=== PATIENT | male | born 1965 | race Caucasian/White ===

== ENCOUNTER 2024-07-13 15:04 | Emergency (ER) | payer MEDICARE, MEDICAID, SELFPAY ==
[2024-07-13 15:17] VITALS: BP 131/113; PULSE 118; RESP 20; TEMP 36.6; O2SAT 98
--- NOTE | 2024-07-13 15:17 | CTR_ITS ---
PROCEDURE INFORMATION: Exam: CT Neck With Contrast Exam date and time: 07/13/2024 4:45 PM Age: 59 years old Clinical indication: Neck pain; Additional info: Left jaw pain/swelling, hiv history TECHNIQUE: Imaging protocol: Computed tomography of the neck with contrast. Radiation optimization: All CT scans at this facility use at least one of these dose optimization techniques: automated exposure control; mA and/or kV adjustment per patient size (includes targeted exams where dose is matched to clinical indication); or iterative reconstruction. Contrast material: OMNI 350; Contrast volume: 100 ml; Contrast route: INTRAVENOUS (IV); COMPARISON: No relevant prior studies available. RADIATION DOSE METRICS: Total DLP (mGy-cm): 234.19 FINDINGS: Salivary glands: There is mild left subcutaneous fat stranding surrounding the left parotid gland with mild enlargement of the inferior aspect of the left parotid gland with heterogeneous enhancement. No collections are seen. Pharynx: Unremarkable. No significant tonsillar enlargement. Larynx: Unremarkable. Epiglottis is normal. Thyroid: Calcified right thyroid nodule measuring 9 mm. Trachea: Visualized trachea is unremarkable. Lungs: Unremarkable as visualized. Lymph nodes: Unremarkable. No lymphadenopathy. Bones/joints: The cervical spine demonstrates mild degenerative changes at multiple levels. Soft tissues: Subcutaneous fat stranding around the inferior aspect of the left parotid gland. CT/CT neck w con* [id number] IMPRESSION: Left parotitis with no abscess formation or collections. COMMENTS: Consistent with the [employer]'s Incidental Findings Committee white paper (J Am Rena Radiol 2015): In patients aged 35 years and older with an incidental thyroid nodule equal to or greater than 1.[address], MRI or extrathyroidal US, further evaluation with dedicated thyroid US is recommended for patients with normal life expectancy and without comorbidities. For smaller nodules without suspicious features, no further evaluation or follow up is recommended.
--- NOTE | 2024-07-13 15:32 | W.ED.DENTAL ---
HPI - Dental/Oral General: Chief complaint: Dental/Oral Stated complaint: left side jaw area knot Time Seen by Provider: 07/13/24 15:08 Source: patient Mode of arrival: ambulatory Limitations: no limitations History of Present Illness: Patient is a 59-year-old male with past medical history of HIV who is presenting to the emergency department complaining of sudden onset left neck swelling beginning a couple of days ago. Reports a history of poor dentition and multiple dental abscesses, however states that this feels different and it has started to make the patient anxious, lightheaded, and nauseous. No vomiting. Tachycardic at time of exam, also reports a history of high blood pressure. States that his T-cell counts have been normal, he has had no residual issues. Has been taking Motrin and Tylenol, no relief. States his airway has been patent, no shortness of breath or chest pain. Pain reported to radiate down left lateral neck, no ear pain. Denies pain medications at this time. Denies history of TMJ. MD Complaint: tooth pain Onset (ago): day(s) Duration: constant Severity: moderate Relieving factors: nothing Exacerbating factors: nothing Context: history of dental caries and poor dental care Associated symptoms: Denies ear or mastoid pain or fever(s) Related Data Previous Rx's ?Medication ?Instructions ?Recorded amoxicillin 875 mg-potassium 1 tab PO BID 7 days #14 tabs 07/13/24 clavulanate 125 mg tablet Allergies Allergy/AdvReac Type Severity Reaction Status Date / Time No Known Allergies Allergy Verified 07/13/24 15:19 Review of Systems General: Reports: 10 or more systems reviewed and unremarkable except in HPI and below Const: Denies: fever(s), chills or fatigue Eyes: Denies: change in vision ENMT: Denies: throat pain, ear or mastoid pain or nasal discharge Card: Reports: lightheadedness; Denies: chest pain, palpitations or swelling of feet/ankles Resp: Denies: dyspnea, productive cough or wheezing GI: Reports: nausea; Denies: abdominal pain, vomiting, diarrhea or constipation : Denies: flank pain, difficulty urinating, dysuria or urinary frequency Musc: Reports: neck pain; Denies: back pain or joint pain Skin/Breast: Denies: rash Neuro: Denies: headache(s), numbness in extremities or weakness in extremities Psych: Reports: anxiety Physical Exam Const: COMMON NORMALS: patient oriented x3 and no limitations GENERAL APPEARANCE: cooperative, well developed and anxious ORIENTATION/CONSCIOUSNESS: Yes awake, Yes oriented to person, Yes oriented to place and Yes oriented to time HENMT: COMMON NORMALS: normocephalic, atraumatic and hearing grossly normal bilaterally HEAD & SCALP: normocephalic and atraumatic OTHER: Poor dentition, multiple caries. No gingival tenderness. Eye: COMMON NORMALS: Equal, round and reactive pupils present, EOMs intact bilaterally and conjunctivae normal CONJUNCTIVA: Yes conjunctivae normal PUPIL: Yes Equal, round and reactive pupils present Neck/C-Spine: COMMON NORMALS: full ROM, supple and no JVD OTHER: Palpable firm swelling to left jaw/neck area. Resp: COMMON NORMALS: normal respiratory effort, No retractions, No use of accessory muscles and clear to auscultation bilaterally AUSCULTATION: clear to auscultation bilaterally Cardio: COMMON NORMALS: no JVD, regular rhythm, No clicks present (Cardio), No murmurs present (Cardio) and No rub (Cardio) RATE: tachycardic RHYTHM: regular rhythm GI: COMMON NORMALS: Normal to inspection, nondistended, normoactive bowel sounds present, Soft to palpation and non-tender AUSCULTATION: Yes normoactive bowel sounds PALPATION: Yes Soft to palpation RECTAL EXAM: Yes deferred Back/Pelvis: COMMON NORMALS: thoracic and lumbar spine normal to inspection, no thoracic nor lumbar tenderness and thoraco-lumbar ROM normal Extremity: COMMON NORMALS: normal to inspection, full ROM and capillary refill normal Neuro: COMMON NORMALS: patient oriented x3, moves all extremities, no focal motor deficits and no sensory deficits noted SENSORIUM/ORIENTATION: Yes oriented to person, Yes oriented to place and Yes oriented to time Psych: COMMON NORMALS: mental status grossly normal and Normal thought process present THOUGHT PROCESS: Normal thought process present Skin: COMMON NORMALS: no rashes or lesions noted GENERAL SKIN EXAM: no rashes or lesions noted Course Vital Signs: Vital signs: Vital Signs Temperature 97.9 F 07/13/24 15:17 Pulse Rate 95 07/13/24 17:23 Respiratory Rate 20 H 07/13/24 15:17 Blood Pressure 124/82 07/13/24 15:45 Pulse Oximetry 96 07/13/24 17:23 Oxygen Delivery Me thod Room Air 07/13/24 17:23 MDM - Dental/Oral Medical Decision Making Patient presenting with sudden onset left neck swelling, history of poor dentition but also history of HIV. Tachycardic on arrival, although patient notably anxious I suspect that this is cause for this. No airway compromise or signs of trouble breathing both with history or exam. Labs obtained unremarkable. CT of the neck showing left proctitis with no abscess. Due to him being immunocompromise HIV, will treat with prophylactic Augmentin but we discussed other conservative measures such as massaging or sour candy/lemon drops to stimulate the duct. He notes quite a bit of improvement after receiving Decadron through IV as well as nausea medications. Discussed return precautions of which she verbalized understanding. Lab Data 07/13/24 15:39 07/13/24 15:[address] 07/13/24 15:17 IMPRESSION: Left parotitis with no abscess formation or collections. COMMENTS: Consistent with the [employer]'s Incidental Findings Committee white paper (J Am Rena Radiol 2015): In patients aged 35 years and older with an incidental thyroid nodule equal to or greater than 1.[address], MRI or extrathyroidal US, further evaluation with dedicated thyroid US is recommended for patients with normal life expectancy and without comorbidities. For smaller nodules without suspicious features, no further evaluation or follow up is recommended. Laboratory Results WBC 11.90 10^3/uL (3.29-11.43) H 07/13/24 15:39 RBC 5.19 10^6/uL (3.85-5.65) 07/13/24 15:39 Hgb 16.30 g/dL (11.27-16.99) 07/13/24 15:39 Hct 46.5 % (37-53) 07/13/24 15:39 MCV 89.6 fl (82-101) 07/13/24 15:39 MCH 31.4 pg (27-33) 07/13/24 15:39 MCHC 35.1 g/dL (30-55) 07/13/24 15:39 RDW 12.4 % (12.1-15.1) 07/13/24 15:39 Plt Count 254 10^3/cmm (157-399) 07/13/24 15:39 MPV 9.0 fL (7.4-10.4) 07/13/24 15:39 Neut % (Auto) 79.4 % 07/13/24 15:39 Lymph % (Auto) 13.0 % 07/13/24 15:39 [place] % (Auto) 6.0 % 07/13/24 15:39 Eos % (Auto) 0.6 % 07/13/24 15:39 Baso % (Auto) 0.7 % 07/13/24 15:39 Neut # (Auto) 9.45 10^3/uL (1.8-7.7) H 07/13/24 15:39 Lymph # (Auto) 1.6 10^3/uL (0.8-4.8) 07/13/24 15:39 [place] # (Auto) 0.7 10^3/uL (0.2-0.9) 07/13/24 15:39 Eos # (Auto) 0.1 10^3/uL (0.0-0.8) 07/13/24 15:39 Baso # (Auto) 0.1 10^3/uL (0.0-0.1) 07/13/24 15:39 Nucleated RBC % (auto) 0 % 07/13/24 15:39 Nucleated RBCs # 0.0 /100WBC 07/13/24 15:39 ESR 17 mm/hr (0-10) H 07/13/24 15:39 Sodium 136 mmol/L (136-145) 07/13/24 15:39 Potassium 3.4 mmol/L (3.5-5.1) L 07/13/24 15:39 Chloride 98 mmol/L (98-107) 07/13/24 15:39 Carbon Dioxide 24 mmol/L (22-29) 07/13/24 15:39 Anion Gap 17.4 (5-19) 07/13/24 15:39 BUN 9 mg/dL (8-23) 07/13/24 15:39 Creatinine 0.9 mg/dL (0.7-1.2) 07/13/24 15:39 GFR Calculation 86.1 mL/min (90-130) L 07/13/24 15:39 Glucose 270 mg/dL (65-115) H 07/13/24 15:39 Calculated Osmolality 290 mOsm/kg (285-295) 07/13/24 15:39 Calcium 9.0 mg/dL (8.5-10.5) 07/13/24 15:39 Total Bilirubin 0.6 mg/dL (0.15-1.2) 07/13/24 15:39 AST 17 U/L (0-40) 07/13/24 15:39 ALT 24 U/L (0-41) 07/13/24 15:39 Alkaline Phosphatase 77 U/L (40-130) 07/13/24 15:39 C-Reactive Protein 15.2 mg/L (0.0-4.9) H 07/13/24 15:39 Total Protein 7.5 g/dL (6.6-8.7) 07/13/24 15:39 Albumin 4.3 g/dL (3.5-5.2) 07/13/24 15:39 Globulin 3.2 g/dL (1.3-4.6) 07/13/24 15:39 All radiology interpretation(s) finalized by discharge Discharge Plan Discharge Patient Disposition: Home Clinical Impression: Acute parotitis Condition: Stable Prescriptions: New amoxicillin-pot clavulanate 875-125 mg tablet 1 tab PO BID 7 Days Qty: 14 0RF Discharge Orders: Discharge ED (Routine); Ordered 07/13/24 Ordered By: Francisco Beard Referrals: Shanonn Cano MD [Primary Care Provider, [facility]] Patient Instructions: Parotid Duct Obstruction (ED), Sialoadenitis (ED) Activity Restrictions/Additional Instructions: Take Augmentin as prescribed. Limit drops or sour candy to stimulate the ducts and to relieve any obstruction. Make sure that you are drinking plenty of water. Gentle massaging of the area. Warm compress as needed. Please see the attached patient instructions for further education. Follow-up with regular doctor as needed. Print Language: Portuguese Coding Level of Care Code ED Business Process Modeler for Matthew Zhao
[2024-07-13] MEDS: ondansetron 2 mg/ML SDV 2 mL 4 MG IVP (15:35)
[2024-07-13] MEDS: dexamethasone 10 mg/mL INJ IVP (15:35)
[2024-07-13 15:45] VITALS: BP 124/82; PULSE 97; O2SAT 96
[2024-07-13 15:46] LABS: Basophils # 0.1 10^3/uL (0.0-0.1); Basophils % 0.7 %; Eosinophils # 0.1 10^3/uL (0.0-0.8); Eosinophils % 0.6 %; Hematocrit 46.5 % (37-53); Lymphocytes # 1.6 10^3/uL (0.8-4.8); Mean Corpuscular HGB Conc 35.1 g/dL (30-55); Mean Corpuscular Hemoglobin 31.4 pg (27-33); Mean Corpuscular Volume 89.6 fl (82-101); Monocytes # 0.7 10^3/uL (0.2-0.9); Neutrophils # 9.45 10^3/uL (1.8-7.7); Neutrophils % 79.4 %; Nucleated Red Blood Cells % 0 %; Platelet Count 254 10^3/cmm (157-399); Red Blood Count 5.19 10^6/uL (3.85-5.65); Red Cell Distribution Width 12.4 % (12.1-15.1)
[2024-07-13 15:54] LABS: Erythrocyte Sedimentation Rate 17 mm/hr (0-10)
[2024-07-13 16:05] LABS: Alanine Aminotransferase 24 U/L (0-41); Albumin Level 4.3 g/dL (3.5-5.2); Alkaline Phosphatase 77 U/L (40-130); Anion Gap 17.4 (5-19); Aspartate Amino Transferase 17 U/L (0-40); Blood Urea Nitrogen 9 mg/dL (8-23); C Reactive Protein 15.2 mg/L (0.0-4.9); Carbon Dioxide 24 mmol/L (22-29); Chloride 98 mmol/L (98-107); Globulin 3.2 g/dL (1.3-4.6); Glomerular Filtration Rate 86.1 mL/min (90-130); Glucose 270 mg/dL (65-115); Osmolality Calculated 290 mOsm/kg (285-295); Potassium 3.4 mmol/L (3.5-5.1); Sodium 136 mmol/L (136-145); Total Bilirubin 0.6 mg/dL (0.15-1.2); Total Protein 7.5 g/dL (6.6-8.7)
[2024-07-13] MEDS: iohexol 350 mg/mL 500 mL Btl (per mL) IV (16:49)
[2024-07-13 17:23] VITALS: PULSE 95; O2SAT 96
[2024-07-13 17:42] VITALS: BP 143/85; PULSE 89; O2SAT 98
== END 2024-07-13 17:43 | disposition home or self-care (01) ==
PROVIDERS: Emergency Provider Physician Assistant; PCP Family Medicine
DX: K11.21 Acute sialoadenitis (principal)
CPT/HCPCS: 70491; 80053; 85025; 85651; 86140; 96374; 96375; 99285; J1100; J2405